=== PATIENT | male | born 1950 | race Hispanic/Latino ===

== ENCOUNTER 2020-05-02 16:49 | Observation (INO) | payer MEDICARE, OTHER ==
[~2020-05-02] VITALS: Ht 157.5 cm; Wt 76.8 kg
[2020-05-02] MEDS: PRAVASTATIN 20 MG TAB PO SCH
[2020-05-02] MEDS: PANTOPRAZOLE SOD 40 MG TABEC PO SCH
[~2020-05-02 16:49] MED LIST: ASPIRIN325 MG PO; BRIMONIDINE TAR10 ML OU; CARVEDILOL12.5 MG PO; CLOPIDOGREL75 MG PO; DORZOLAMIDE-TIM10 ML OU; ISOSORBIDE MONO30 MG PO; LATANOPROST2.5 ML OU; LEVOTHYROXINE50 MCG PO; LOSARTAN POTAS100 MG PO; METFORMIN HCL1000 MG PO; NITROSTAT0.4 MG SL; NOVOLIN N100 UNIT/1 SC; NOVOLIN N100 UNIT/1 SQ; OMEPRAZOLE20 MG PO; PRAVASTATIN SOD40 MG PO; RANEXA500 MG PO
[2020-05-02] MEDS ORDERED: ASPIRIN 81 MG CHEW TAB PO ONE (17:15)
[2020-05-02 17:20] LABS: BASOPHILS % 0.7 % (0.0-1.0); EOSINOPHILS # (AUTO) 0.1 (0.0-0.4); HEMATOCRIT 35.3 % (38.2-49.6); HEMOGLOBIN 10.7 g/dL (14.0-18.0); LYMPHOCYTES # (AUTO) 1.2 (1.0-3.2); LYMPHOCYTES % 20.1 % (18.0-39.1); MEAN CORPUSCULAR HEMOGLOBIN 29.7 pg (28-32); MEAN CORPUSCULAR HGB CONC 30.3 g/dL (31-35); MEAN CORPUSCULAR VOLUME 98.1 fL (81-99); MONOCYTES # (AUTO) 0.6 (0.2-0.8); MONOCYTES % 9.2 % (4.4-11.3); NEUTROPHILS # (AUTO) 4.1 (2.1-6.9); NEUTROPHILS % 67.5 % (38.7-80.0); PLATELET COUNT 162 x10e3/uL (140-360); RED CELL DISTRIBUTION WIDTH 13.9 % (11.7-14.4)
[2020-05-02 17:23] LABS: CLARITY,URINE CLEAR (CLEAR); COLOR,URINE YELLOW (YELLOW); KETONES,URINE NEGATIVE (NEGATIVE); LEUKOCYTE ESTERASE ,URINE NEGATIVE (NEGATIVE); NITRITE,URINE NEGATIVE (NEGATIVE); PROTEIN,URINE DIPSTICK 2+ (NEGATIVE); URINE UROBILINOGEN 0.2 mg/dL (0.2 - 1)
[2020-05-02 17:24] LABS: BILIRUBIN,URINE NEGATIVE (NEGATIVE)
[2020-05-02 17:28] LABS: INR 0.91; PROTHROMBIN TIME 12.7 seconds (11.9-14.5)
[2020-05-02 17:29] LABS: PARTIAL THROMBOPLASTIN TIME 32.6 seconds (23.8-35.5)
[2020-05-02 17:38] LABS: ALBUMIN 4.7 g/dL (3.5-5.0); ALBUMIN/GLOBULIN RATIO 1.4 (0.8-2.0); ANION GAP 20.3 mmol/L (8-16); CALCIUM 9.4 mg/dL (8.4-10.2); CREATININE, SERUM 1.2 mg/dL (0.72-1.25); POTASSIUM 4.3 mmol/L (3.5-5.1)
[2020-05-02 17:45] LABS: CREATINE KINASE MB 0.9 ng/mL (0-5.0)
[2020-05-02 21:09] VITALS: BP 158/81
[2020-05-02 21:39] VITALS: BP 158/81
[2020-05-02] MEDS ORDERED: ENOXAPARIN SOD INJ 60 MG/0.6 ML SYR SC STA (22:01)
[2020-05-02] MEDS: LATANOPROST(OPTH) 2.5 ML BTL OU SCH (22:15)
[2020-05-02] MEDS ORDERED: NPH, HUMAN INSULIN ISOPHANE 100 UNIT/1 ML 3ML VIAL SQ SCH (22:15)
[2020-05-02] MEDS ORDERED: DEXTROSE 50% SYRINGE 50 ML IV PRN (22:15)
[2020-05-02] MEDS ORDERED: FUROSEMIDE INJ 10 MG/ML 4 ML VIAL IV ONE (22:15)
[2020-05-02] MEDS ORDERED: NITROGLYCERIN 0.4 MG SUBL SL PRN (22:15)
[2020-05-02 22:58] VITALS: BP 148/58
[2020-05-02 23:03] VITALS: BP 131/54
[2020-05-03] VITALS (8 sets, daily range): BP systolic 124–158; BP diastolic 56–72
[2020-05-03 01:49] LABS: CREATINE KINASE MB 0.7 ng/mL (0-5.0)
[2020-05-03 04:58] LABS: BASOPHILS % 0.4 % (0.0-1.0); EOSINOPHILS # (AUTO) 0.1 (0.0-0.4); EOSINOPHILS % 0.9 % (0.0-6.0); HEMATOCRIT 30.9 % (38.2-49.6); HEMOGLOBIN 9.9 g/dL (14.0-18.0); LYMPHOCYTES # (AUTO) 1.2 (1.0-3.2); LYMPHOCYTES % 21.3 % (18.0-39.1); MEAN CORPUSCULAR HEMOGLOBIN 31.4 pg (28-32); MEAN CORPUSCULAR VOLUME 98.1 fL (81-99); MONOCYTES # (AUTO) 0.5 (0.2-0.8); MONOCYTES % 9.4 % (4.4-11.3); NEUTROPHILS # (AUTO) 3.6 (2.1-6.9); NEUTROPHILS % 67.4 % (38.7-80.0); PLATELET COUNT 149 x10e3/uL (140-360); RED BLOOD COUNT 3.15 x10e6/uL (4.3-5.7); RED CELL DISTRIBUTION WIDTH 13.7 % (11.7-14.4)
[2020-05-03 05:16] LABS: ALBUMIN 4.4 g/dL (3.5-5.0); ALBUMIN/GLOBULIN RATIO 1.5 (0.8-2.0); ANION GAP 16.6 mmol/L (8-16); CALCIUM 9.3 mg/dL (8.4-10.2); CREATININE, SERUM 1.2 mg/dL (0.72-1.25); POTASSIUM 3.6 mmol/L (3.5-5.1)
[2020-05-03 05:32] LABS: CHOL/HDL RATIO 2.8 (3.9-4.7)
[2020-05-03 05:52] LABS: THYROID STIMULATING HORMONE 0.593 uIU/mL (0.350-4.940)
[2020-05-03] MEDS: LEVOTHYROXINE SODIUM 50 MCG TAB PO SCH (06:11)
[2020-05-03] MEDS: INSULIN LISPRO 100 UNIT/1 ML 3ML VIAL SQ SCH ×4 (07:30→19:57)
[2020-05-03] MEDS ORDERED: NPH, HUMAN INSULIN ISOPHANE 100 UNIT/1 ML 3ML VIAL SQ SCH (07:30)
[2020-05-03] MEDS: CARVEDILOL 12.5 MG TAB PO SCH ×2 (08:00→17:23)
[2020-05-03] MEDS: RANOLAZINE 500 MG TABSR PO SCH ×2 (09:00→17:23)
[2020-05-03] MEDS: DORZOLAMIDE/TIMOLOL (OPTH SOL) 10 ML DRPETTE OP SCH ×2 (09:00→17:22)
[2020-05-03] MEDS: BRIMONIDINE TARTRATE 0.15% OPTH DRPS 10ML BTL OP SCH ×2 (09:00→17:22)
[2020-05-03] MEDS: FUROSEMIDE INJ 10 MG/ML 4 ML VIAL IV SCH (09:00)
[2020-05-03] MEDS ORDERED: HYDRALAZINE HCL 25 MG TAB PO PRN (09:15)
[2020-05-03] MEDS ORDERED: AZITHROMYCIN 250 MG TAB PO ONE (10:00)
[2020-05-03 11:02] LABS: CREATINE KINASE MB 0.7 ng/mL (0-5.0)
[2020-05-03] MEDS ORDERED: REGADENOSON 0.4 MG/5 ML SYR IV ONE (11:25)
[2020-05-03] MEDS ORDERED: SODIUM CHLORIDE 0.9% 250ML 250 ML ONE (14:03)
[2020-05-03] MEDS: CYANOCOBALAMIN INJ 1,000 MCG/ML VIAL IM SCH (14:04)
[2020-05-03] MEDS: CEFTRIAXONE SOD 1 GM/NS 50 ML 50 ML IV SCH (14:04)
[2020-05-03] MEDS: ASPIRIN 325 MG TAB PO SCH (17:21)
[2020-05-03] MEDS: ISOSORBIDE MONONITRATE 30 MG TAB CR PO SCH (17:21)
[2020-05-03] MEDS: CLOPIDOGREL BISULFATE 75 MG TAB PO SCH (17:22)
[2020-05-03] MEDS: LATANOPROST(OPTH) 2.5 ML BTL OU SCH (20:04)
[2020-05-03] MEDS: PRAVASTATIN 20 MG TAB PO SCH (20:05)
[2020-05-03] MEDS: PANTOPRAZOLE SOD 40 MG TABEC PO SCH (20:05)
[2020-05-03] MEDS ORDERED: LOSARTAN POTASSIUM 100 MG TAB PO SCH (21:00)
[2020-05-04] VITALS: BP 105/75
[2020-05-04 04:00] VITALS: BP 140/69
[2020-05-04 05:46] LABS: ANION GAP 17.7 mmol/L (8-16); BLOOD UREA NITROGEN 14 mg/dL (7-26); BUN/CREATININE RATIO 13 (6-25); CALCIUM 8.6 mg/dL (8.4-10.2); CARBON DIOXIDE 21 mmol/L (22-29); CHLORIDE 106 mmol/L (98-107); CREATININE, SERUM 1.06 mg/dL (0.72-1.25); EST GLOMERULAR FILTRATION RATE > 60 ML/MIN (60-); GLUCOSE 119 mg/dL (74-118); POTASSIUM 3.7 mmol/L (3.5-5.1); SODIUM 141 mmol/L (136-145)
[2020-05-04] MEDS ORDERED: MIDAZOLAM HCL 2 MG/2 ML VIAL ONE ×2 (07:16→08:48)
[2020-05-04] MEDS ORDERED: HEPARIN SOD (PORCINE) 1000 UNIT/ML 30ML ONE (07:16)
[2020-05-04] MEDS ORDERED: IOPAMIDOL 370 MG/ML 200 ML INFUS..BTL INJ ONE (07:17)
[2020-05-04] MEDS ORDERED: SODIUM CHLORIDE 0.9% 1000ML 1,000 ML ONE (07:17)
[2020-05-04] MEDS ORDERED: FENTANYL CITRATE/PF 100MCG/2 ML INJ ONE ×2 (07:17→08:48)
[2020-05-04] MEDS ORDERED: HEPARIN SOD/SOD CHLORIDE 2,000 ML ONE (07:17)
[2020-05-04] MEDS ORDERED: LIDOCAINE HCL 2% LOCAL 20 ML VIAL ONE ×2 (07:17→08:46)
[2020-05-04] MEDS ORDERED: NITROGLYCERIN/D5W 200 MCG/ML 0 ML ONE (07:17)
[2020-05-04] MEDS: LEVOTHYROXINE SODIUM 50 MCG TAB PO SCH (07:24)
[2020-05-04] MEDS: INSULIN LISPRO 100 UNIT/1 ML 3ML VIAL SQ SCH ×3 (07:24→16:30)
[2020-05-04] MEDS ORDERED: HEPARIN SOD/SOD CHLORIDE 1,000 ML ONE (08:22)
[2020-05-04 08:54] VITALS: BP 140/69
[2020-05-04] MEDS ORDERED: AZITHROMYCIN 250 MG TAB PO SCH (09:00)
[2020-05-04] MEDS: CARVEDILOL 12.5 MG TAB PO SCH ×2 (10:03→18:09)
[2020-05-04] MEDS: FUROSEMIDE INJ 10 MG/ML 4 ML VIAL IV SCH (10:03)
[2020-05-04] MEDS: CYANOCOBALAMIN INJ 1,000 MCG/ML VIAL IM SCH (10:03)
[2020-05-04] MEDS: ASPIRIN 325 MG TAB PO SCH (10:04)
[2020-05-04] MEDS: DORZOLAMIDE/TIMOLOL (OPTH SOL) 10 ML DRPETTE OP SCH ×2 (10:04→18:08)
[2020-05-04] MEDS: ISOSORBIDE MONONITRATE 30 MG TAB CR PO SCH (10:04)
[2020-05-04] MEDS: BRIMONIDINE TARTRATE 0.15% OPTH DRPS 10ML BTL OP SCH ×2 (10:04→18:08)
[2020-05-04] MEDS: CLOPIDOGREL BISULFATE 75 MG TAB PO SCH (10:04)
[2020-05-04] MEDS: RANOLAZINE 500 MG TABSR PO SCH ×2 (10:05→18:09)
[2020-05-04] MEDS: CEFTRIAXONE SOD 1 GM/NS 50 ML 50 ML IV SCH (10:05)
[2020-05-04 12:57] VITALS: BP 134/60
[2020-05-04 15:53] LABS: CALCIUM 8.7 mg/dL (8.4-10.2); CREATININE, SERUM 1.22 mg/dL (0.72-1.25)
[2020-05-04 16:00] VITALS: BP 105/66
[2020-05-04 20:00] VITALS: BP 105/66
== END 2020-05-04 19:25 | disposition home or self-care (01) ==
LOC: ER 17:20 → ERHOLD 18:23 → MED/SURG 20:05 → OBSVTOIN 05-03 22:09 → INTOOBSV 05-03 22:09
PROVIDERS: ADMIT Internal Medicine; ATTEND Internal Medicine
DX: I11.0 Hypertensive heart disease with heart failure (principal); I50.9 Heart failure, unspecified; I25.110 Atherosclerotic heart disease of native coronary artery with unstable angina pectoris; I25.82 Chronic total occlusion of coronary artery; E11.9 Type 2 diabetes mellitus without complications; I25.2 Old myocardial infarction; E03.9 Hypothyroidism, unspecified; K21.9 Gastro-esophageal reflux disease without esophagitis; E78.5 Hyperlipidemia, unspecified; Z95.1 Presence of aortocoronary bypass graft; Z95.5 Presence of coronary angioplasty implant and graft; E53.8 Deficiency of other specified B group vitamins; D50.9 Iron deficiency anemia, unspecified; I35.0 Nonrheumatic aortic (valve) stenosis
CPT/HCPCS: 36415 ×3; 71045; 71250; 76937; 78452; 80048; 80053 ×2; 80061; 81001; 82550 ×2; 82553 ×2; 82607; 82746; 82948 ×3; 83036; 83540; 83880; 84443; 84466; 84484 ×2; 85025 ×2; 85610; 85730; 93005; 93017; 93306 ×2; 93461; 99284; A9502; C1751; C1760 ×2; C1766; C1769 ×4; G0378 ×3; J0696 ×2; J1644; J1650; J1940 ×2; J2001; J2250; J2785; J3010; J3420 ×2; J7030; J7050; Q9967; S0164 ×2; U0002; 99152; 99153

== ENCOUNTER 2020-05-04 20:31 | Emergency (ER) | payer MEDICARE ==
[~2020-05-04] VITALS: Ht 157.5 cm; Wt 76.7 kg
[2020-05-04] MEDS ORDERED: SODIUM CHLORIDE 0.9% 500ML 500 ML IV ONE (21:30)
--- OUTSIDE RECORDS SUMMARY | 2020-05-04 21:35 | XMS REPORT | Continuity of Care Document ---
Author Author [facility] t Organization [facility] Address [address] [place] [address] Phone Unavailable Care Team Providers Care Fire Alarm Dispatcher Name Role Phone NONSTAFF PCP Unavailable BALJINDER GALINDO Attphys Unavailable Kinjal SANTOYO, P Bernabe Attphys TERESA PITT Attphys Unavailable BALJINDER GALINDO Admphys Unavailable TERESA PITT Admsusies Unavailable Payers Payer Name Policy Type Policy Number Effective Date Expiration Date Netta maguire [facility] [id number] 2016 00:00:00 [facility] HCHD [id number] UNSCREENEDxxxxxxxx 07/[id number] [place] [address] xxxxxxxxx 2014 00:00:00 [facility] Condition Name Condition Details Condition Category Status Onset Date Resolution Date Last Treatment Date Treating Clinician Comments Source CAD (coronary artery disease) CAD (coronary artery disease) Disease Active 2018-02-19 00:00:00 [facility] Exertional angina Exertional angina Disease Active 2018-02-18 00:00:00 [facility] Multiple vessel coronary artery disease Multiple vessel starla nary artery disease Disease Active 2018-02-18 00:00:00 [facility] Diverticulitis of intestine Problem Active 2016-04-06 00:00:00 [facility] Cardiomyopathy Problem Active 2016-04-06 00:00:00 [facility] Non-ST elevation (NSTEMI) myocardial infarction Proble m Active 2016-04-06 00:00:00 [facility] Angina of effort Angina of effort Disease Active 2015-11-09 00:00:00 [facility] Type II or unspecified type diabetes shnanon litus without mention of complication, not stated as uncontrolled Type II or unspecified type diabetes shannon litus without mention of complication, not stated as uncontrolled Disease Active 2014-03-10 00:00:00 [facility] Glaucoma, normal tension Glaucoma, normal tension Disease Acti ve 2014-02-10 00:00:00 [facility] GERD (gastroesophageal reflux disease) GERD (gastroesophagea l reflux disease) Disease Active 2013-09-25 00:00:00 [facility] Stable angina Stable angina Disease Active 2012-06-07 00:00:00 [facility] Orthopnea Orthopnea Disease Active 2012-06-07 00:00:00 [facility] Diabetes mellitus Diabetes mellitus Disease Active 2012-06-07 00:00:00 [facility] Glaucoma Glaucoma Disease Active 2012-06-07 00:00:00 [facility] Dyslipidemia Dyslipidemia Disease Active 2012-06-07 00:00:00 [facility] Hypothyroidism Hypothyroidism Disease Active 2012-06-07 00:00:00 [facility] Dyspnea on exertion Dyspnea on exertion Disease Active 2012-06-07 00:00 :00 [facility] CAD S/P percutaneous coronary angioplasty CAD S/P perc utaneous coronary angioplasty Disease Active 2012-06-07 00:00:00 [facility] Hx of CABG Hx of CABG Disease Active 2012-06-07 00:00:00 [facility] Chest pain Problem Active [facility] Allergies, Adverse Reactions, Alerts Allergy Name Allergy Type Status Severity Reaction(s) Onset Date Inacti ve Date Treating Clinician Comments Source Lisinopril Propensity to adverse reactions Active Severe 2014-12-03 00:00:00 Other reaction(s): Cough [facility] Lisinopril Propensity to adverse reactions to drug Active Cough 2013-03-31 00:00:00 [facility] Family History Family Member Diagnosis Comments Start Date Stop Date Source Natural brother Diabetes Dick He alth Natural father Arthritis Dick Hea lt Natural father Cancer [facility] lt Natural mother Diabetes Dick Hea [facility] Natural mother Heart Dick Grimesa [facility] Natural sister Arthritis Dick jennifer [facility] Natural sister Hypertension [facility] Social History Social Habit Start Date Stop Date Quantity Comments Source Sex Assigned At [facility] Tobacco Comment 2018-02-18 00:00:00 2018-02-18 00:00:00 quit 1996 [facility] Alcohol intake 2014-05-18 00:00:00 2014-05-18 00:00:00 Current drinker of alcohol (finding) [facility] Alcohol Comment 2012-06-06 00:00:00 2012-06-06 00:00:00 DSrinks 2 drinks on occasion [facility] History of tobacco use 1987-06-18 00:00:00 Current smoker [facility] Smoking Status Start Date Stop Date Source Former smoker 2014-05-18 00:00:00 2014-05-18 00:00:00 [facility] Medications Ordered Medication Name Filled Medication Name Start Date Stop Da te Current Medication? Ordering Clinician Indication Dosage Frequency Signature (SIG) Comments Components Source ranolazine (RANEXA) 1,000 mg SR tablet 2018-02-19 00:00:00 Yes 1000mg Q.5D Take 1 tablet (1,000 mg total) by mouth 2 (two) times daily. [facility] isosorbide mononitrate (ISMO,MONOKET) 20 MG tablet 2018-01 06:46:46 Yes 120mg Q.5D Take 120 mg by mouth 2 (two) times daily . [facility] metoprolol (LOPRESSOR) 100 MG tablet 2018-02-18 06:46:46 Ye s 100mg Q.5D Take 100 mg by mouth 2 (two) times daily. [facility] dorzolamide (TRUSOPT) 2 % ophthalmic solution 2015-11-09 07:16:3 7 Yes 1[drp] Q.[id number] 1 drop 3 (three) times daily. [facility] latanoprost (XALATAN) 0.005 % ophthalmic solution 2015-11-09 07:16:37 Yes 1[drp] QD 1 drop nightly. [facility] insulin NPH 100 unit/mL (3 mL) InPn 2015-11-09 07:16:37 Yes 15U Inject 15 Units subcutaneously 2 (two) times daily before meals. [facility] losartan (COZAAR) 100 MG tablet 2015-11-09 07:16:36 Yes 100mg QD Take 100 mg by mouth daily. [facility] metFORMIN (GLUCOPHAGE) 1000 MG tablet 2015-11-09 07:16:36 Y es 1000mg Take 1,000 mg by mouth 2 (two) times daily with breakfast and dinner. [facility] aspirin 325 MG tablet 2015-11-09 07:16:36 Yes 325mg QD Take 325 mg by mouth daily. [facility] levothyroxine (SYNTHROID, LEVOTHROID) 50 MCG tablet 11-08 07:16:36 Yes 50ug Take 50 mcg by mouth Every morning on an empty stomach. [facility] simvastatin (ZOCOR) 40 MG tablet 2015-11-09 07:16:36 Yes 40mg QD Take 40 mg by mouth nightly. [facility] clopidogrel (PLAVIX) 75 mg tablet 2015-11-09 07:16:36 Yes 75mg QD Take 75 mg by mouth daily. [facility] brimonidine (ALPHAGAN) 0.15 % ophthalmic solution 2015-11-09 07:16:36 Yes 1[drp] Q.[id number] 1 drop 3 (three) times daily. [facility] Brinzolamide (AZOPT) 1 % ophthalmic suspension 2014-05-18 08:23: 10 Yes 1[drp] Administer 1 Drop in both eyes 3 times daily. [facility] aspirin (NELLA ASPIRIN) 325 mg tablet 2014-05-18 08:23:10 Y es 325mg QD Take 325 mg by mouth daily. [facility] isosorbide mononitrate (IMDUR) 120 mg extended release table t 2014-05-18 00:00:00 Yes CAD (coronary artery disease) 120mg QD Take 1 tablet by mouth daily. [facility] isosorbide mononitrate (IMDUR) 60 mg extended release tablet 2014-05-18 00:00:00 Yes CAD (coronary artery disease) 60mg QD Take 1 tablet by mouth daily. [facility] losartan (COZAAR) 100 mg tablet 2014-05-18 00:00:00 Yes HTN, goal below 130/80 100mg QD Take 1 tablet by mouth daily. [facility] simvastatin (ZOCOR) 40 mg tablet 2014-05-18 00:00:00 Yes CAD (coronary artery disease) 40mg Take 1 tablet by mouth at bedtime nightly. [facility] latanoprost (XALATAN) 0.005 % ophthalmic solution 2014-05-07 00:00:00 Yes Glaucoma, normal tension 1[drp] Instill 1 Drop in each eye at bedtime nightly. [facility] ALPHAGAN P 0.15 % ophthalmic solution 2014-05-07 00:00:00 Yes Glaucoma, normal tension 1[drp] Instill 1 Drop in each eye 3 times daily. [facility] dorzolamide-timolol (COSOPT) 2-0.5 % ophthalmic solution 2014-05-07 00:00:00 Yes Glaucoma, normal tension 1[drp] Q.5D Instill 1 Drop in each eye 2 times daily. [facility] omeprazole (PRILOSEC) 20 mg delayed release capsule 04-15 00:00:00 Yes GERD (gastroesophageal reflux disease) 20mg QD Ta ke 1 capsule by mouth daily. [facility] metFORMIN (GLUCOPHAGE) 500 mg tablet 2014-04-15 00:00:00 Yes Diabetes mellitus type II, uncontrolled 1000mg Take 2 ta blets by mouth 2 times daily (with meals). [facility] acetaminophen (TYLENOL) 500 mg tablet 2014-04-15 00:00:00 Yes Musculoskeletal pain 500mg Take 1 tablet by [facility] every 6 hours as needed for Pain. [facility] insulin NPH (NOVOLIN N) 100 unit/mL injection 2014-03-03 00: 00:00 Yes Diabetes mellitus type II, uncontrolled Inject 15 units under the skin every morning and 12 units every evening. [facility] latanoprost (XALATAN) 0.005 % ophthalmic solution 2014-02-10 00:00:00 Yes Glaucoma, normal tension 1[drp] Instill 1 Drop in each eye at bedtime nightly. [facility] brimonidine (ALPHAGAN P) 0.15 % ophthalmic solution 02-10 00:00:00 Yes Glaucoma, normal tension 1[drp] Q.5D Instill 1 Drop in each eye 2 times daily. [facility] dorzolamide-timolol (COSOPT) 2-0.5 % ophthalmic solution 2014-02-10 00:00:00 Yes Glaucoma, normal tension 1[drp] Q.5D Instill 1 Drop in each eye 2 times daily. [facility] ULTRA COMFORT INSULIN SYRINGE 1/2 ML 30 X 5/16" syringe-need le 2014-02-01 00:00:00 Yes Diabetes mellitus type II, controlled 1{ syringe} Q.5D Use to inject insulin 2 times daily. Use a new syringe each time. [facility] Phenylephrine-Witch Catie (PREPARATION H) 0.25-50 % Gel 2013-12-02 00:00:00 Yes Constipated Q.5D Apply to affected area 2 times daily . [facility] Psyllium Seed-Sucrose (METAMUCIL) Powd 2013-12-02 00:00:00 Yes Constipated 3.4g QD Take 3.4 g by mouth daily. [facility] ketoconazole (NIZORAL) 2 % topical cream 2013-11-24 00:00:00 Yes Dermatophytosis of foot Q.5D Apply to affecte d area 2 times daily Label in Swedish. [facility] dorzolamide-timolol (COSOPT) 2-0.5 % ophthalmic solution 2013-11-12 00:00:00 Yes 1[drp] Q.5D Instill 1 Drop in each eye 2 giorgio es daily. [facility] brimonidine (ALPHAGAN P) 0.15 % ophthalmic solution 11-12 00:00:00 Yes 1[drp] Q.5D Instill 1 Drop in each eye 2 times daily . [facility] latanoprost (XALATAN) 0.005 % ophthalmic solution 2013-11-12 00:00:00 Yes 1[drp] Instill 1 Drop in each eye at bedtime nightly. [facility] levothyroxine (SYNTHROID) 50 mcg tablet 2013-10-28 00:00:00 Yes Hypothyroidism 50ug QD Take 1 tablet by mouth daily. [facility] carvedilol (COREG) 12.5 mg tablet 2013-10-15 00:00:00 Yes CAD (coronary artery disease) 12.5mg Take 1 tablet by mouth 2 times daily (with meals). [facility] clopidogrel (PLAVIX) 75 mg tablet 2013-10-15 00:00:00 Yes CAD (coronary artery disease) 75mg QD Take 1 tablet by mouth daily. [facility] nitroGLYCERIN (NITROSTAT) 0.4 mg sublingual tablet 2013-09 00:00:00 Yes CAD (coronary artery disease) Di ssolve 1 tablet under the tongue every 5 minutes as needed, up to 3 times. If chest pain persists, call 911. [facility] blood glucose test strips 2013-09-23 00:00:00 Yes Diabetes mellitus 1{each} Q.5D USE 1 EACH 2 TIMES DAILY [facility] ipratropium (ATROVENT HFA) 17 mcg/actuation inhaler 2012-08 00:00:00 Yes Restrictive lung disease 2{puff} Inhale 2 Puffs by mouth 4 times daily. [facility] albuterol (PROVENTIL HFA,PROAIR HFA,VENTOLIN HFA) 90 mcg/act uation inhaler 2013-02-24 00:00:00 Yes Chronic cough 2{puff} Administer 2 Puffs by inhalation every 4 hours as needed for Wheezing and Shortness of Breath. every 4 to 6 hours as needed [facility] beclomethasone (BECONASE AQ) 42 mcg (0.042 %) nasal spray 2013-02-24 00:00:00 Yes Chronic cough 2{spray} Q.5D Administer 2 Sprays in each nostril 2 times daily. Dose is for each nostril. [facility] cetirizine (ZYRTEC) 10 mg tablet 2013-02-24 00:00:00 Yes Chronic cough 10mg QD Take 1 tablet by mouth daily. [facility] nitroGLYCERIN (NITROSTAT) 0.4 mg sublingual tablet 2012-11 00:00:00 Yes CAD (coronary artery disease) Ta ke 1 tab sublingual at sign of chest pain, go to the ER after first dose but can repeat every 5 mins but not no more than 3 times total if still having pain [facility] Aspirin Aspirin Yes 325 Daily [facility] Brimonidine Tartrate Brimonidine Tartrate Yes 1 Twice A Day [facility] Carvedilol Carvedilol Yes 25 Twice A Day [facility] Clopidogrel Bisulfate (Clopidogrel) 75 Mg TABLET Clopi dogrel Bisulfate (Clopidogrel) 75 Mg TABLET Yes 75 Daily [facility] Dorzolamide Hcl/Timolol Maleat (Dorzolamide-Timolol Ey e Drops) 10 Ml DROPS Dorzolamide Hcl/Timolol Maleat (Dorzolamide-Timolol Eye Drops) 10 Ml DROPS Yes 1 Twice A Day [facility] Isosorbide Mononitrate (Isosorbide Mononitrate Er) 30 Mg TAB.ER.24H Isosorbide Mononitrate (Isosorbide Mononitrate Er) 30 Mg TAB.ER.24H Yes 120 Daily [facility] Latanoprost Latanoprost Yes 1 Bedtime [facility] Levothyroxine Sodium Levothyroxine Sodium Yes 50 Today At 6:00AM [facility] Losartan Potassium Losartan Potassium Yes 100 Da thao [facility] Metformin Hcl Metformin Hcl Yes 1000 Twice A Day [facility] Nitroglycerin (Nitrostat) 0.4 Mg TAB.SUBL Nitroglyceri n (Nitrostat) 0.4 Mg TAB.SUBL Yes .4 Every 5 Minutes as needed for Chest Pain [facility] Omeprazole Omeprazole Yes 40 Bedtime [facility] Pravastatin Sodium Pravastatin Sodium Yes 40 Be dtime [facility] Ranolazine (Ranexa) 500 Mg TABSR Ranolazine (Ranexa) 500 Mg TABSR Yes 1000 Twice A Day [facility] Nph, Human Insulin Isophane (Novolin N) 100 Unit/1 Ml VIAL Nph, Human Insulin Isophane (Novolin N) 100 Unit/1 Ml VIAL 2020-05-02 00:00:00 No 15 Before Breakfast [facility] Nph, Human Insulin Isophane (Novolin N) 100 Unit/1 Ml VIAL Nph, Human Insulin Isophane (Novolin N) 100 Unit/1 Ml VIAL 2020-05-02 00:00:00 No 15 Bedtime [facility] Immunizations Ordered Immunization Name Filled Immunization Name Date Status Comments Source Influenza Vaccine 2013-07-28 00:00:00 Completed [facility] Influenza Vaccine 2012-06-06 00:00:00 Completed [facility] PPV 23 Pneumococcal Polysaccaride 2012-06-06 00:00:00 Comp leted [facility] Vital Signs Vital Name Observation Time Observation Value Comments Source Body Temperature 2020-05-04 16:00:00 97.7 [degF] [facility] BMI (Body Mass Index) 2020-05-03 01:27:00 31.0 kg/m2 [facility] Weight 2020-05-02 21:10:00 169.25 [lb_av] [facility] Procedures Procedure Date / Time Performed Performing Clinician [facility] e Computed tomography of chest without contrast 2020-05-02 00:00:0 0 [facility] Plan of Care Planned Activity Planned Date Details Comments Source Future Scheduled Test 2015-01-25 00:00:00 Hemoglobin A1c shira surement (procedure) [code = 41449159] [facility] Scheduled Test 2014-10-23 00:00:00 CORONARY ARTERY DI SEASE AGE 18 AND UP [code = CORONARY ARTERY DISEASE AGE 18 AND UP] [facility] Scheduled Test 2014 00:00:00 IMM Pneumococcal A ge 65 and Up [code = IMM Pneumococcal Age 65 and Up] [facility] Scheduled Test 2014-05-08 00:00:00 DM Retinal Exam (Y early) [code = DM Retinal Exam (Yearly)] [facility] Scheduled Test 2013-11-04 00:00:00 DM Foot Exam (Year ly) [code = DM Foot Exam (Yearly)] [facility] Scheduled Test 1999 00:00:00 Screening for roselia gnant neoplasm of colon (procedure) [code = 802855855] [facility] Instructions Chest Pain - Chest Wall [facility] Instructions Diabetes and Diet [facility] Encounters Start Date/Time End Date/Time Encounter Type Admission Type [facility] Facility Care Department Encounter ID Source 2020-05-02 18:23:00 2020-05-04 19:25:00 Discharged Inpatient (obs) 1 BALJINDER GALINDO [facility] [id number] [facility] Results Test Description Test Time Test Comments Results Result Comments Source Serum or plasma sodium measurement (moles/volume) 2020-05-04 15:30:00 Test Item Sodium Level (test code = 2951-2) 141 136-[address] [facility], TXerum or plasma potassium measurement (moles/volume)2020-05-04 15:30:00* Test Item Value Reference Range Interpretation Comments Potassium Level (test code = 2823-3) 4.0 3.5-5.[address] [facility], TXerum or plasma chloride measurement (moles/volume)2020-05-04 15:30:00* Test Item Value Reference Range Interpretation Comments Chloride Level (test code = 2075-0) 105 98-[address] [facility], TXerum or plasma carbon dioxide, total measurement (moles/volume)2020-05-04 15:30:00* Test Item Value Reference Range Interpretation Comments Carbon Dioxide Level (test code = 2028-9) 21 22-[address] [facility], TXerum or plasma anion [id number] 15:30:00* Test Item Value Reference Range Interpretation Comments Anion Gap (test code = 91150-1) 19.0 8-[address] [facility], TXerum or plasma urea nitrogen measurement (mass/volume)2020-05-04 15:30:00* Test Item Value Reference Range Interpretation Comments Blood Urea Nitrogen (test code = 3094-0) 14 7-[address] [facility], TXerum or plasma creatinine measurement (mass/volume)2020-05-04 15:30:00* Test Item Value Reference Range Interpretation Comments Creatinine (test code = 2160-0) 1.22 0.72-1.[address] [facility], TXerum or plasma urea nitrogen/creatinine mass [id number] 15:30:00* Test Item Value Reference Range Interpretation Comments BUN/Creatinine Ratio (test code = 3097-3) 11 6-25 [facility] glomerular filtration rate (GFR) [id number] 15:30:00* Test Item Value Reference Range Interpretation Comments Estimat Glomerular Filtration Rate (test code = 639744409) 59 >60 Ranges were taken from the National Kidney Disease Education Program and the [employer] literature.Reference ranges:60 or greater: Lakdwq01-50 ( for 3 consecutive months): Chronic kidney disease 15 or less: Kidney failureThe Hospitals of Providence Memorial CampusGlucose [id number] 15:30:00* Test Item Value Reference Range Interpretation Comments Glucose Level (test code = WCU8124) 122 74-[address] [facility], TXerum or plasma calcium measurement (mass/volume)2020-05-04 15:30:00* Test Item Value Reference Range Interpretation Comments Calcium Level (test code = 30771-1) 8.7 8.4-10.2 [facility] CampusCapillary blood glucose measurement by glucometer (mass/volume)2020-05-04 10:54:00* Test Item Value Reference Range Interpretation Comments Bedside Glucose (test code = 02297-0) 109 70-120 Meter ID: [id number] [facility]'s Hospitalerum or plasma creatine kinase measurement (enzymatic activity/volume)2020-05-03 10:20:00* Test Item Value Reference Range Interpretation Comments Creatine Kinase (test code = 2157-6) 31 30-[address] [facility], TXerum or plasma creatine kinase MB measurement (mass/volume)2020-05-03 10:20:00* Test Item Value Reference Range Interpretation Comments Creatine Kinase MB (test code = 88091-0) 0.70 0-5.0 [facility] CampusTroponin I measurement by highly sensitive enzyme [id number] 10:20:00* Test Item Value Reference Range Interpretation Comments Troponin I (test code = 72726-0) 0.064 0-0.300 [facility] CampusBlood leukocytes automated count (number/volume)2020-05-03 04:40:00* Test Item Value Reference Range Interpretation Comments White Blood Count (test code = 6690-2) 5.40 4.8-10.8 [facility] erythrocytes automated count (number/volume)2020-05-03 04:40:00* Test Item Value Reference Range Interpretation Comments Red Blood Count (test code = 789-8) 3.15 4.3-5.7 [facility] hemoglobin measurement (moles/volume)2020-05-03 04:40:00* Test Item Value Reference Range Interpretation Comments Hemoglobin (test code = 22084-5) 9.9 14.0-18.0 [facility] CampusAutomated blood hematocrit (volume fraction)2020-05-03 04:40:00* Test Item Value Reference Range Interpretation Comments Hematocrit (test code = 4544-3) 30.9 38.2-49.6 [facility] CampusAutomated erythrocyte mean corpuscular [id number] 04:40:00* Test Item Value Reference Range Interpretation Comments Mean Corpuscular Volume (test code = 787-2) 98.1 81-99 [facility] CampusAutomated erythrocyte mean corpuscular hemoglobin (mass per erythrocyte)2020-05-03 04:40:00* Test Item Value Reference Range Interpretation Comments Mean Corpuscular Hemoglobin (test code = 785-6) 31.4 28-32 [facility] CampusAutomated erythrocyte mean corpuscular hemoglobin concentration measurement (mass/volume)2020-05-03 04:40:00* Test Item Value Reference Range Interpretation Comments Mean Corpuscular Hemoglobin Concent (test code = 786-4) 32.0 31-35 [facility] CampusRDW [id number] 04:40:00* Test Item Value Reference Range Interpretation Comments Red Cell Distribution Width (test code = 17527-3) 13.7 11.7 -14.4 [facility] CampusAutreplaced by [facility]ed blood platelet count (count/volume)2020-05-03 04:40:00* Test Item Value Reference Range Interpretation Comments Platelet Count (test code = 777-3) 149 140-360 [facility] segmented neutrophil count as percentage of total [id number] 04:40:00* Test Item Value Reference Range Interpretation Comments Neutrophils (%) (Auto) (test code = 03498-7) 67.4 38.7-80.0 [facility] CampusAutreplaced by [facility] blood lymphocyte count as percentage ot total [id number] 04:40:00* Test Item Value Reference Range Interpretation Comments Lymphocytes (%) (Auto) (test code = 736-9) 21.3 18.0-39.1 [facility] CampusAutomated blood monocyte count as percentage of total [id number] 04:40:00* Test Item Value Reference Range Interpretation Comments Monocytes (%) (Auto) (test code = 5905-5) 9.4 4.4-11.3 [facility] CampusAutomated blood eosinophil count as percentage of total vljctpxjgy0158-91-57 04:40:00* Test Item Value Reference Range Interpretation Comments Eosinophils (%) (Auto) (test code = 713-8) 0.9 0.0-6.0 [facility] CampusAutomated blood basophil count as percentage of total snkwakosey2122-52-58 04:40:00* Test Item Value Reference Range Interpretation Comments Basophils (%) (Auto) (test code = 706-2) 0.4 0.0-1.0 [facility] CampusFluoroscopic procedure less than one hour jfmcmhew5947-62-01 04:40:00* Test Item Value Reference Range Interpretation Comments IM GRANULOCYTES % (test code = IM GRANULOCYTES %) 0.6 0.0- 1.0 [facility] CampusAutomated blood neutrophil count 2020-05-03 04:40:00* Test Item Value Reference Range Interpretation Comments Neutrophils # (Auto) (test code = 751-8) 3.6 2.1-6.9 [facility] CampusBlood lymphocytes count (number/volume) 2020-05-03 04:40:00* Test Item Value Reference Range Interpretation Comments Lymphocytes # (Auto) (test code = 01941-3) 1.2 1.0-3.2 [facility] CampusBlood monocytes automated count (number/volume)2020-05-03 04:40:00* Test Item Value Reference Range Interpretation Comments Monocytes # (Auto) (test code = 742-7) 0.5 0.2-0.8 [facility] CampusAutomated blood eosinophil count 2020-05-03 04:40:00* Test Item Value Reference Range Interpretation Comments Eosinophils # (Auto) (test code = 711-2) 0.1 0.0-0.4 [facility] CampusAutomated blood basophil count (count/volume)2020-05-03 04:40:00* Test Item Value Reference Range Interpretation Comments Basophils # (Auto) (test code = 704-7) 0.0 0.0-0.1 [facility] CampusFluoroscopic procedure less than one hour skonjhdt8074-10-15 04:40:00* Test Item Value Reference Range Interpretation Comments Absolute Immature Granulocyte (auto (brendan t code = Absolute Immature Granulocyte (auto) 0.03 0-0.1 [facility] CampusFluoroscopic procedure less than one hour jujlgelp7267-99-52 04:40:00* Test Item Value Reference Range Interpretation Comments Hemoglobin A1c Percent (test code = Hemoglobin A1c Percent) 5.6 4.0-7.[address] [facility] [place], TXerum or plasma iron measurement (mass/volume)2020-05-03 04:40:00* Test Item Value Reference Range Interpretation Comments Iron Level (test code = 2498-4) 43 65-[address] [facility] [place], TXerum or plasma iron binding capacity measurement (mass/volume)2020-05-03 04:40:00* Test Item Value Reference Range Interpretation Comments Total Iron Binding Capacity (test code = 2500-7) 522 261-[address] [facility] [place], TXerum or plasma iron saturation measurement (mass fraction)2020-05-03 04:40:00* Test Item Value Reference Range Interpretation Comments Percent Iron Saturation (test code = 2502-3) 8 15-[address] [facility] [place], TXerum or plasma transferrin measurement (mass/volume)2020-05-03 04:40:00* Test Item Value Reference Range Interpretation Comments Transferrin (test code = 3034-6) 373 174-[address] [facility] [place], TXerum or plasma total bilirubin measurement (mass/volume)2020-05-03 04:40:00* Test Item Value Reference Range Interpretation Comments Total Bilirubin (test code = 1975-2) 0.5 0.2-1.2 [facility] CampusFluoroscopic procedure less than one hour jxncgpsg4078-87-31 04:40:00* Test Item Value Reference Range Interpretation Comments Aspartate Amino Transf (AST/SGOT) (test code = Aspartate Amino Transf (AST/SGOT)) 15 5-[address] [facility] [place], TXerum or plasma alanine aminotransferase measurement (enzymatic activity/volume)2020-05-03 04:40:00* Test Item Value Reference Range Interpretation Comments Alanine Aminotransferase (ALT/SGPT) (test code = 1742-6) 16 0-[address] [facility] [place], TXerum or plasma protein measurement (mass/volume)2020-05-03 04:40:00* Test Item Value Reference Range Interpretation Comments Total Protein (test code = 2885-2) 7.4 6.5-8.[address] [facility] [place], TXerum or plasma albumin measurement (mass/volume)2020-05-03 04:40:00* Test Item Value Reference Range Interpretation Comments Albumin (test code = 1751-7) 4.4 3.5-5.0 [facility] CampusPlasma globulin measurement (mass/volume) 2020-05-03 04:40:00* Test Item Value Reference Range Interpretation Comments Globulin (test code = 98825-6) 3.0 2.3-3.[address] [facility] [place], TXerum or plasma albumin/globulin mass [id number] 04:40:00* Test Item Value Reference Range Interpretation Comments Albumin/Globulin Ratio (test code = 1759-0) 1.5 0.8-2.[address] [facility] [place], TXerum or plasma alkaline phosphatase measurement (enzymatic activity/volume)2020-05-03 04:40:00* Test Item Value Reference Range Interpretation Comments Alkaline Phosphatase (test code = 6768-6) 46 40-[address] [facility] [place], TXerum or plasma triglyceride measurement (mass/volume)2020-05-03 04:40:00* Test Item Value Reference Range Interpretation Comments Triglycerides Level (test code = 2571-8) 112 0-[address] [facility] [place], TXerum or plasma cholesterol measurement (mass/volume)2020-05-03 04:40:00* Test Item Value Reference Range Interpretation Comments Cholesterol Level (test code = 2093-3) 171 0-199 Less than 200 mg/dL Low Jdin343 - 239 mg/dL Borderline Nehe922 m g/dl and greater High Risk [facility] [place], TXerum or plasma cholesterol in LDL measurement (mass/volume) 2020-05-03 04:40:00* Test Item Value Reference Range Interpretation Comments LDL Cholesterol (test code = 2089-1) 88 60-[address] [facility] [place], TXerum or plasma cholesterol in HDL measurement (mass/volume)2020-05-03 04:40:00* Test Item Value Reference Range Interpretation Comments HDL Cholesterol (test code = 2085-9) 61 40-[address] [facility] [place], TXerum or plasma total cholesterol/cholesterol in HDL mass [id number] 04:40:00* Test Item Value Reference Range Interpretation Comments Cholesterol/HDL Ratio (test code = 9830-1) 2.8 3.9-4.7 [facility] CampusBlood cobalamin (vitamin B12) measurement (mass/volume)2020-05-03 04:40:00* Test Item Value Reference Range Interpretation Comments Vitamin B12 Level (test code = 11667-9) 123 213-[address] [facility] [place], TXerum or plasma thyrotropin measurement by detection limit <= 0.005 miu/l (units/volume)2020-05-03 04:40:00* Test Item Value Reference Range Interpretation Comments Thyroid Stimulating Hormone (TSH) (test code = 87989-2) 0.593 0.350-4.[address] [facility] [place], TXerum or plasma folate measurement (mass/volume)2020-05-03 04:40:00* Test Item Value Reference Range Interpretation Comments Folate (test code = 2284-8) 14.7 >3.0 A serum folate concentration of less than 3.1 ng/mL isconsidered to represent cl inical deficiency.Performed at: - [facility] [id number] Director: Hill Mendenhall MD, Phone: [phone] Hospitals of [facility] Memorial CampusCT CHEST [id number] 23:01:[address] [address] Patient Name: KASSY FRANKS MR #: [id number] : 1950 Age/Sex: 69/M Req #: [id number] [facility] Physician: BALJINDER GALINDO MD Ordered by: BALJINDER GALINDO MD Report #: [id number] Location: MED/SURG Room/Bed: [facility] Procedure: CT/CT CHES [place] WO Exam Date: 05/02/20 Exam Time: 2249 REPORT STATUS: Signed EXAM: CT Chest WITHOUT contrast INDICATION: Short of breath, abnormal chest x-ray, infection versus CHF sob/abn cxr/infection vs chf [id number] COMPARISON: Same- day chest x-ray TECHNIQUE: Chest was scanned utilizing a multidetector [facility] from the lung apex through the level of the adrenal glands witho ut administration of IV contrast. Absence of intravenous contrast decreases se nsitivity for detection of lymphadenopathy and vascular pathology. Coronal and sagittal reformations were obtained. Routine protocol was performed. IV CONTRAST: None COMPLICATIONS: None RADIATION DOSE: Total DLP: 544 mGy*cm Estimated effective dose: (DLP x 0.014 x size factor) mSv CTDIvol has been reviewed. It is below the limits set by the Radiation Protocol Committee (RPC). Dose modulation, iterative reconstruction, and /or weight based adjustment of the mA/kV was utilized to reduce the radiation dose to as low as reasonably achievable. FINDINGS: LINES / TUBES: None. LUNGS AND AIRWAYS: Interlobular septal thickening mild thick ening of the intrapulmonary fissures.. A few subtle foci of centrilobular grou ndglass opacities. Airways are normal. PLEURA: The pleural spaces are melida ar. HEART AND MEDIASTINUM: The thyroid gland is normal. No mediastinal, hi lar or axillary lymphadenopathy. The heart is normal in size. An 8.7 cm lobul ar soft tissue dense mass-like lesion with peripheral and subtle internal calc ification in the lower anterior mediastinum/pericardium . Calcifications o f the aorta and major branches. UPPER ABDOMEN: Unremarkable. BONES: Sternotomy wires. Degenerative changes. SOFT TISSUES: Unremarkable. IMPRESSION: Mild cardiomegaly and pulmonary interstitial edema. A few foci of alveolar airspace disease can be due to alveolar edema or pneumonia. Adva nced coronary artery disease. An 8.7 cm lobular soft tissue dense mass-li ke lesion with peripheral and subtle internal calcification in the lower anter ior mediastinum/pericardium is favored to be due to postsurgical pericardial c hanges rather than mass/neoplasm. Recommend nonemergent chest CT with contrast . Signed by: Forest Mei DO on 05/02/2020 11:12 PM Dictated By: NIYAH MEI DO 231 2 Transcribed By: SHYAM on 05/02/20 2312 COPY TO: BALJINDER GALINDO MD Fluoroscopic procedure less than one hour [id number] 18:40:00* Test Item Value Reference Range Interpretation Comments Coronavirus (PCR) (test code = Coronavirus (PCR)) NOT DETECTED NOTD ETECTED SARS-CoV-2 PCRHologic Aptima SARS-CoV-2 assay is a nucleic amplification test in tended for the qualitative detection of RNA from SARS-CoV-2 from nasopharyngeal ([employer]) specimens. It is used under Emergency Use Authorization (EUA) by FDA.A posi tive result is indicative of the presence of SARS-CoV-2 RNA. Clinical correlatio n with patient history and other diagnostic information is necessary to determin e patient infection status.A negative (Not Detected) result does not preclude SA RS-CoV-2 infection. Clinical Correlation with patient history and other diagnost ic information should be used in patient management decisions.Invalid: Unable to generate a valid result on this specimen. Please submit a new specimen for repr at testing oc clinically indicated.Tesing performed by:[facility] [place] [id number], Edy marshall MD, PhDBaylor [facility] & [facility] SINGLE (PORTABLE) 2020-05-02 18:11:00 [facility] [address] [address] Patient Name: KASSY FRANKS MR #: [id number] : 1950 Age/Sex: 69/M Req #: [id number] Adm Physician: Ordered by: MUNDO ISAACS DO Report #: [id number] Location: ER Room/Bed: Procedure: [id number] DX/C HEST SINGLE (PORTABLE) Exam Date: 05/02/20 Exam Time : 1730 REPORT STATUS: Signed EXA MINATION: CHEST SINGLE (PORTABLE) INDICATION: COMPARISON: None FINDINGS: TUBES and LINES: None. LUNGS: Normal lung vo lumes. There is prominent interstitial lung markings, particularly at the yoly g bases No consolidations. PLEURA: No pleural effusion or pneumothorax. HEART AND MEDIASTINUM: The cardiomediastinal silhouette is mildly enlarged. Atherosclerotic calcification of the thoracic aortic knob. BONES AND SOFT TISSUES: No acute osseous lesion. There are median sternotomy wires and medi astinal surgical clips Soft tissues are unremarkable. UPPER ABDOMEN: No shine e air under the diaphragm. IMPRESSION: Mild cardiomegaly with pro minent interstitial lung markings particularly lung bases which most likely re presents interstitial pulmonary edema with superimposed bibasilar atelectasis. Developing lower lobe pneumonia cannot be excluded and should be considered in the proper clinical context. Signed by: Ronel Beltran MD on 05/02/2020 6:14 PM Dictated By: RONEL BELTRAN MD 13 Transcribed By: SHYAM on 05/02/201813 COPY TO: MUNDO ISAACS DO Prothrombin time (PT) in platelet poor plasma by coagulation [id number] 17:11:00* Test Item Value Reference Range Interpretation Comments Prothrombin Time (test code = 5902-2) 12.7 11.9-14.5 [facility] CampusINR in Platelet poor plasma by Coagulation [id number] 17:11:00* Test Item Value Reference Range Interpretation Comments Prothromb Time International Ratio (test code = 6301-6) 0.91 Oral Anticoagulant Therapy INR Values:1. Low Intensity Therapy 1.5 - 2.02 . Moderate Intensity Therapy 2.0 - 3.03. High Intensity Therapy(1) 2.5 - 3. 54. High Intensity Therapy(2) 3.0 - 4.05. Panic Value INR > 5.0 [facility] CampusActivated partial thromboplastin time (aPTT) in platelet poor plasma by coagulation xzirq1612-74-51 17:11:00* Test Item Value Reference Range Interpretation Comments Activated Partial Thromboplast Time (test code = 17528-5) 32.6 23.8-35.5 [facility] CampusUrine color hssalnjfabdtp6016-53-30 17:11:00* Test Item Value Reference Range Interpretation Comments Urine Color (test code = 5778-6) YELLOW YELLOW [facility] CampusUrine [id number] 17:11:00* Test Item Value Reference Range Interpretation Comments Urine Clarity (test code = 72440-1) CLEAR CLEAR [facility] [place], TXpecific gravity of Urine by Test strip 2020-05-02 17:11:00* Test Item Value Reference Range Interpretation Comments Urine Specific [place] (test code = 5811-5) 1.020 1.010-1.02 5 [facility] CampusUrine pH measurement by automated test [id number] 17:11:00* Test Item Value Reference Range Interpretation Comments Urine pH (test code = 25380-8) 6 5-7 [facility] CampusUrine leukocyte esterase detection by [id number] 17:11:00* Test Item Value Reference Range Interpretation Comments Urine Leukocyte Esterase (test code = 5799-2) NEGATIVE NEGATIVE [facility] CampusUrine nitrite yzhsgviun2341-49-27 17:11:00* Test Item Value Reference Range Interpretation Comments Urine Nitrite (test code = 03287-1) NEGATIVE NEGATIVE [facility] CampusUrine protein measurement by test strip (mass/volume)2020-05-02 17:11:00* Test Item Value Reference Range Interpretation Comments Urine Protein (test code = 5804-0) 2+ NEGATIVE [facility] CampusUrine glucose mrrsrmbsl6137-42-52 17:11:00* Test Item Value Reference Range Interpretation Comments Urine Glucose (UA) (test code = 2349-9) 1+ NEGATIVE [facility] CampusUrine ketones detection by automated test [id number] 17:11:00* Test Item Value Reference Range Interpretation Comments Urine Ketones (test code = 60863-7) NEGATIVE NEGATIVE [facility] CampusUrine urobilinogen measurement by test strip (mass/volume)2020-05-02 17:11:00* Test Item Value Reference Range Interpretation Comments Urine Urobilinogen (test code = 68842-3) 0.2 0.2-1 [facility] CampusUrine total bilirubin measurement (mass/volume)2020-05-02 17:11:00* Test Item Value Reference Range Interpretation Comments Urine Bilirubin (test code = 1978-6) NEGATIVE NEGATIVE [facility] CampusUrine erythrocytes nulmolqdc4370-31-79 17:11:00* Test Item Value Reference Range Interpretation Comments Urine Blood (test code = 72910-9) NEGATIVE NEGATIVE [facility] CampusAutomated urine sediment leukocyte count by microscopy (number/high power field)2020-05-02 17:11:00* Test Item Value Reference Range Interpretation Comments Urine WBC (test code = 5821-4) NONE 0-5 [facility] CampusErythrocytes detection in urine sediment by light bbizvoswsu4961-81-19 17:11:00* Test Item Value Reference Range Interpretation Comments Urine RBC (test code = 93761-8) NONE 0-5 [facility] CampusBacteria detection in urine sediment by light qbjukudsbr4626-83-60 17:11:00* Test Item Value Reference Range Interpretation Comments Urine Bacteria (test code = 66474-5) NONE NONE [facility] CampusEpithelial cells detection in urine sediment by light ybfqyamfln1092-24-03 17:11:00* Test Item Value Reference Range Interpretation Comments Urine Epithelial Cells (test code = 57102-1) NONE NONE [facility] CampusBN Ftg-sSji4830-61-07 17:11:00* Test Item Value Reference Range Interpretation Comments B-Type Natriuretic Peptide (test code = 30453-0) 530.2 0-100 [facility] CampusPOCT-GLUCOSE [id number] 08:54:00* Test Item Value Reference Range Interpretation Comments POC-GLUCOSE METER (BEAKER) (test code = 1538) 109 mg/dL 70-110 TESTED AT [facility] [address] [facility] [address] BASIC METABOLIC [id number] 04:58:00* Test Item Value Reference Range Interpretation Comments SODIUM (BEAKER) (test code = 381) 139 meq/L 136-145 POTASSIUM (BEAKER) (test code = 379) 4.0 meq/L 3.5-5.1 CHLORIDE (BEAKER) (test code = 382) 108 meq/L 98-107 H CO2 (BEAKER) (test code = 355) 24 meq/L 22-29 BLOOD UREA NITROGEN (BEAKER) (test code = 354) 15 mg/dL 7-21 CREATININE (BEAKER) (test code = 358) 0.80 mg/dL 0.57-1.25 GLUCOSE RANDOM (BEAKER) (test code = 652) 93 mg/dL 70-105 CALCIUM (BEAKER) (test code = 697) 8.8 mg/dL 8.4-10.2 EGFR (BEAKER) (test code = 1092) 96 mL/min/1.73 sq m ESTIMATED GFR IS NOT ACCURATE CREATININE CLEARANCE IN PREDICTING GLOMERULAR FILTRATION RATE. ESTIMATED GFR IS NOT APPLICABLE FOR DIALYSIS PATIENTS. CBC (HEMOGRAM ONLY)2018-02-19 04:39:00* Test Item Value Reference Range Interpretation Comments WHITE BLOOD CELL COUNT (BEAKER) (test code = 775) 6.6 K/ L 3.5- 10.5 RED BLOOD CELL COUNT (BEAKER) (test code = 761) 3.22 M/ L 4.63-6 .08 L HEMOGLOBIN (BEAKER) (test code = 410) 10.1 GM/DL 13.7-17.5 L HEMATOCRIT (BEAKER) (test code = 411) 31.1 % 40.1-51.0 L MEAN CORPUSCULAR VOLUME (BEAKER) (test code = 753) 96.6 fL 79. 0-92.2 H MEAN CORPUSCULAR HEMOGLOBIN (BEAKER) (test code = 751) 31.4 pg 25.7-32.2 MEAN CORPUSCULAR HEMOGLOBIN CONC (BEAKER) (test code = 752) 32.5 GM/DL 32.3-36.5 RED CELL DISTRIBUTION WIDTH (BEAKER) (test code = 412) 13.1 % 11.6-14.4 PLATELET COUNT (BEAKER) (test code = 756) 99 K/CU MM 150-450 L MEAN PLATELET VOLUME (BEAKER) (test code = 754) 13.1 fL 9.4-12 .4 H NUCLEATED RED BLOOD CELLS (BEAKER) (test code = 413) 0 /100 WBC 0 -0 POCT-GLUCOSE [id number] 21:38:00* Test Item Value Reference Range Interpretation Comments POC-GLUCOSE METER (BEAKER) (test code = 1538) 224 mg/dL 70-110 H TESTED AT [facility] [address] [facility] [address] POCT-GLUCOSE [id number] 17:36:00* Test Item Value Reference Range Interpretation Comments POC-GLUCOSE METER (BEAKER) (test code = 1538) 164 mg/dL 70-110 H TESTED AT [place] [id number] [facility] [address] MR, CARDIAC, [id number] 17:19:00Reason for exam:->Assess myocardial viabilityFINAL REPORT Cardiac MRI dated 18 February 2018 INDICATION: This is a 67 years old gentleman, with no ischemic heart disease, post coronary artery bypass surgery presents for assessment. This study is performed in order to quantitate left ventricular function, and to determine myocardial viability and damage. TECHNIQUE: [employer] technologyVA MRI scanner. Morphologic and dynamic cine imaging were performed in multiple projections before and after contrast administration. Thereafter, gadolinium was administered, which was followed by viability/scar imaging. Finally, flow quantification sequences were performed to determine the degree of valvular dysfunction. Please refer to the contrast sheet scanned in the EPIC system for the amount and route of contrast given. Scanning blood pressure was 145/69. Patient weighs 181 pounds, with height of 64 inches. FINDINGS: The chest wall and mediastinum appears unremarkable an patient is post median sternotomy. The pericardium and pulmonary arteries appear normal; no pericardial effusion is seen in the central pulmonary artery is normal in calibre. Limited imaging through the lungs reveals no gross abnormalities; MR is not optimised in the assessment of pulmonary parenchymal lung disease. The cardiac chambers demonstrate normal atrioventricular and ventriculoarterial concordance, and s ystemic and pulmonary venous return. The thoracic aorta is normal in course, c alibre, and contour. Mild atherosclerosis is seen in the descending thoracic aor ta. There is no evidence of acute aortic pathology, such as dissection, intramur al hematoma, or contained rupture. The left ventricle is normal in size with mi ld systolic dysfunction. Segmental wall motion abnormality is seen, specifically , there is severe hypokinesis/akinesis identified in the basal and mid inferior wall (with thinning of the myocardium), extending into the adjacent inferolatera l septum and inferolateral wall. The most distal inferior wall has reasonable co ntraction suggesting it may be supplied by a wraparound LAD. Quantitative values are as follows: EDV = 175 cc; ESV = 99 cc; stroke volume = 75 cc; and ejection fraction = 43%. Calculated absolute cardiac output = 4.9 liters/min. Absolute left ventricular mass = 102 grams. The right ventricle is normal in size and fun ction. The most basal inferior wall of the right ventricle is also hypokinetic. Quantitative values are as follows: EDV = 100 cc; ESV = 42 cc; stroke volume = 5 8 cc; and ejection fraction = 58%. Cine imaging and flow quantification reveal s mild mitral regurgitation regurgitant fraction of 20%. Aortic and tricuspid va lve function is unremarkable. Viability/scar imaging reveals essentially transmu ral scar in the basal two third of the inferior wall (sparing the first few mill imeter of the basal inferior wall), that extends into the adjacent basal one thi rd of the inferoseptum and inferolateral wall. The distal inferior wall is fully viable. Thereafter remainder of the left ventricle have full-thickness, viable appearing myocardium including the LAD territory extending into the entire apex, as well as the majority of the lateral wall. Ventricular thrombus is not presen t. Flow curves suggest raised left atrial pressure. Left atrial prominence is id entified. Incidental note, lipomatous hypertrophy of the interatrial septum is p resent. CONCLUSIONS: 1. The left ventricle is normal in size with overall mild systolic dysfunction. Regional wall motion abnormality as described above. Eject ion fraction is quantified to be 43%. Quantitative left ventricular functional values are as described above. Viability/scar imaging reveals essentially transm ural scar in the basal two third of the inferior wall (sparing the first few mil limeter of the basal inferior wall), that extends into the adjacent basal one th ird of the inferoseptum and inferolateral wall. The distal inferior wall is full y viable. Remainder of the left ventricle otherwise have full-thickness, viable appearing myocardium including the LAD territory extending into the entire apex, as well as the majority of the lateral wall. 2. The right ventricle is normal in size, shape, and function. Quantitative right ventricular functional veins as described above 3. Mild mitral regurgitation. 4. Raised left atrial pressure. Left atrial prominence. Signed: Madhav Daniels MDReport Verified Date/Time: 0 02/18/2018 17:19:14 Reading Location: [place] [address] Cardiology [facility] y signed by: MADHAV DANIELS M.D. on 02/18/2018 05:19 PM POCT-GLUCOSE METER 2018-02-18 10:18:00* Test Item Value Reference Range Interpretation Comments POC-GLUCOSE METER (EDE) (test code = 1538) 107 mg/dL 70-110 TESTED AT [facility] [address] [place] [id number]
--- OUTSIDE RECORDS SUMMARY | 2020-05-04 21:35 | XMS REPORT | Clinical Summary ---
Author Author [facility] Organization [facility] Address Unknown Phone Unavailable Care Team Providers Care Rn Licensed Practical Name Role Phone PCP Unavailable Allergies Comments Active Allergy Reactions Severity Noted Date Lisinopril Cough 03/31/2013 Medications End Date Status Medication Sig Dispensed Refills Start Date Active Brinzolamide (AZOPT) 1 % Administer 1 0 ophthalmic suspension Drop in both eyes 3 times daily. Active nitroGLYCERIN (NITROSTAT) Take 1 tab 100 tablet 2 0.4 mg sublingual sublingual at 3 tabletIndications: CAD sign of chest (coronary artery disease) pain, go to the ER after first dose but can repeat every 5 mins but not no more than 3 times total if still having pain Active albuterol (PROVENTIL Administer 2 1 Inhaler 1 HFA,PROAIR HFA,VENTOLIN Puffs by 3 HFA) 90 mcg/actuation inhalation inhalerIndications: every 4 hours Chronic cough as needed for Wheezing and Shortness of Breath. every 4 to 6 hours as needed Active beclomethasone (BECONASE Administer 2 25 g 1 AQ) 42 mcg (0.042 %) Sprays in 3 nasal sprayIndications: each nostril Chronic cough 2 times daily. Dose is for each nostril. Active cetirizine (ZYRTEC) 10 mg Take 1 tablet 90 tablet 1 tabletIndications: by mouth 3 Chronic cough daily. Active ipratropium (ATROVENT Inhale 2 1 Inhaler 1 HFA) 17 mcg/actuation Puffs by 3 inhalerIndications: mouth 4 times Restrictive lung disease daily. Active blood glucose test USE 1 EACH 2 100 Each stripsIndications: TIMES DAILY 4 Diabetes mellitus Active aspirin (NELLA ASPIRIN) Take 325 mg 0 325 mg tablet by mouth daily. Active carvedilol (COREG) 12.5 Take 1 tablet 180 tablet 3 mg tabletIndications: CAD by mouth 2 4 (coronary artery disease) times daily (with meals). Active clopidogrel (PLAVIX) 75 Take 1 tablet 90 tablet 3 mg tabletIndications: CAD by mouth 4 (coronary artery disease) daily. Active nitroGLYCERIN (NITROSTAT) Dissolve 1 100 tablet 6 0.4 mg sublingual tablet under 4 tabletIndications: CAD the tongue (coronary artery disease) every 5 minutes as needed, up to 3 times. If chest pain persists, call 911. Active levothyroxine (SYNTHROID) Take 1 tablet 90 tablet 2 50 mcg tabletIndications: by mouth 4 Hypothyroidism daily. Active dorzolamide-timolol Instill 1 30 mL 1 (COSOPT) 2-0.5 % Drop in each 4 ophthalmic solution eye 2 times daily. Active brimonidine (ALPHAGAN P) Instill 1 15 mL 1 0 0.15 % ophthalmic Drop in each 4 solution eye 2 times daily. Active latanoprost (XALATAN) Instill 1 7.5 mL 1 10/25 0 0.005 % ophthalmic Drop in each 4 solution eye at bedtime nightly. Active ketoconazole (NIZORAL) 2 Apply to 30 g 0 0 % topical affected area 4 creamIndications: 2 times daily Dermatophytosis of foot Label in Qatari. Active Phenylephrine-Witch Catie Apply to 1 Tube 0 (PREPARATION H) 0.25-50 % affected area 4 GelIndications: 2 times Constipated daily. Active Psyllium Seed-Sucrose Take 3.4 g by 1 Bottle 0 (METAMUCIL) mouth daily. 4 PowdIndications: Constipated Active ULTRA COMFORT INSULIN Use to inject 100 Each 11 SYRINGE 1/2 ML 30 X 5/16" insulin 2 4 syringe-needleIndications times daily. : Diabetes mellitus type Use a new II, controlled syringe each time. Active latanoprost (XALATAN) Instill 1 2.5 mL 1 01/24 0.005 % ophthalmic Drop in each 4 solutionIndications: eye at Glaucoma, normal tension bedtime nightly. Active brimonidine (ALPHAGAN P) Instill 1 15 mL 1 0 0.15 % ophthalmic Drop in each 4 solutionIndications: eye 2 times Glaucoma, normal tension daily. Active dorzolamide-timolol Instill 1 10 mL 1 (COSOPT) 2-0.5 % Drop in each 4 ophthalmic eye 2 times solutionIndications: daily. Glaucoma, normal tension Active insulin NPH (NOVOLIN N) Inject 15 30 mL 2 100 unit/mL units under 4 injectionIndications: the skin Diabetes mellitus type every morning II, uncontrolled and 12 units every evening. Active omeprazole (PRILOSEC) 20 Take 1 90 capsule 1 0 mg delayed release capsule by 4 capsuleIndications: GERD mouth daily. (gastroesophageal reflux disease) Active metFORMIN (GLUCOPHAGE) Take 2 360 tablet 1 500 mg tabletIndications: tablets by 4 Diabetes mellitus type mouth 2 times II, uncontrolled daily (with meals). Active acetaminophen (TYLENOL) Take 1 tablet 30 tablet 0 500 mg tabletIndications: by mouth 4 Musculoskeletal pain every 6 hours as needed for Pain. Active latanoprost (XALATAN) Instill 1 7.5 mL 1 04/26 0.005 % ophthalmic Drop in each 4 solutionIndications: eye at Glaucoma, normal tension bedtime nightly. Active ALPHAGAN P 0.15 % Instill 1 30 mL 1 05/07/20 1 ophthalmic Drop in each 4 solutionIndications: eye 3 times Glaucoma, normal tension daily. Active dorzolamide-timolol Instill 1 30 mL 1 (COSOPT) 2-0.5 % Drop in each 4 ophthalmic eye 2 times solutionIndications: daily. Glaucoma, normal tension Active isosorbide mononitrate Take 1 tablet 90 tablet 3 0 (IMDUR) 120 mg extended by mouth 4 release daily. tabletIndications: HTN, goal below 130/80, CAD (coronary artery disease) Active isosorbide mononitrate Take 1 tablet 90 tablet 3 0 (IMDUR) 60 mg extended by mouth 4 release daily. tabletIndications: HTN, goal below 130/80, CAD (coronary artery disease) Active losartan (COZAAR) 100 mg Take 1 tablet 90 tablet 3 tabletIndications: HTN, by mouth 4 goal below 130/80 daily. Active simvastatin (ZOCOR) 40 mg Take 1 tablet 90 tablet 3 tabletIndications: CAD by mouth at 4 (coronary artery disease) bedtime nightly. Active Problems Problem Noted Date Type II or unspecified type diabetes mellitus without mention of 03/10/2014 complication, not stated as uncontrolle d Glaucoma, normal tension 02/10/2014 GERD (gastroesophageal reflux disease) 09/25/2013 Stable angina 06/07/2012 Orthopnea 06/07/2012 Diabetes mellitus 06/07/2012 Glaucoma 06/07/2012 Dyslipidemia 06/07/2012 Hypothyroidism 06/07/2012 Dyspnea on exertion 06/07/2012 CAD S/P percutaneous coronary angioplasty 06/07/2012 Hx of CABG 06/07/2012 Encounters Care Team Description Date Type Specialty Bernabe Layton MD Medications 01/12/2020 Refill Ophthalmology Bernabe Layton MD Medications 12/16/2019 Refill Ophthalmology after 05/04/2019 Immunizations Name Administration Dates Next Due Influenza Vaccine 07/28/2013, 06/06/2012 PPV 23 Pneumococcal 06/06/2012 Polysaccaride Family History Medical History Relation Name Comments Diabetes Brother Arthritis Father Cancer Father Diabetes Mother Heart Mother Arthritis Sister Hypertension Sister Relation Name Status Comments Brother Alive 3 Brother Daughter Alive Father Mother Sister Alive 8 Sister Son Alive 2 Social History Date Tobacco Use Types Packs/Day Years Used Quit: 06/18/1987 Former Smoker Cigarettes Smokeless Tobacco: Never Used Tobacco Cessation: Counseling Given: No Drinks/Week oz/Week Comments Alcohol Use DSrinks 2 drinks on occasion Yes Sex Assigned at Date Recorded Not on file Industry Job Start Date Occupation Not on file Not on file Not on file Travel End Travel History Travel Start No recent travel history available. Last Filed Vital Signs Not on file Plan of Treatment Health Maintenance Due Date Last Done Comments Colorectal Cancer Scrn 1999 Annual (FIT/FOBT) Age 50 to 75 DM Foot Exam (Yearly) 11/04/2013 11/04/2012 DM Retinal Exam (Yearly) 05/08/2014 05/08/2013 (Previously completed - External) IMM Pneumococcal Age 65 2014 and Up CORONARY ARTERY DISEASE 10/23/2014 10/23/2013, AGE 18 AND UP 06/27/2013, 12/02/2012, Additional history exists DM HGBA1C (Yearly) 01/25/2015 01/25/2014, 10/23/2013, 06/27/2013, Additional history exists Results Not on fileafter 05/04/2019 Insurance Type Payer Benefit Subscriber ID Effective Phone Address Plan / Dates Group [facility] SELF-PAY SELF-PAY xxxxxxxxx 2014- [phone] [id number] [place] [address] Household (Home) [place], [place] [address] (Self) Advance Directives Date Inactivated Comments Code Status Date Activated 06/11/2012 8:23 PM Full Code 06/10/2012 12:24 PM 06/10/2012 12:24 PM Full Code 06/10/2012 12:22 PM 06/10/2012 12:22 PM Full Code 06/06/2012 7:43 PM
--- OUTSIDE RECORDS SUMMARY | 2020-05-04 21:35 | XMS REPORT | Clinical Summary ---
Author Author [facility] Address Unknown Phone Unavailable Care Team Providers Care Honing Machine Operator Tool Name Role Phone John Fajardo MD PCP Unavailable Allergies Comments Active Allergy Reactions Severity Noted Date Other reaction(s): Cough Lisinopril High 12/03/2014 Medications End Date Status Medication Sig Dispensed Refills Start Date Active losartan (COZAAR) 100 MG Take 100 mg 0 tablet by mouth daily. Active metFORMIN (GLUCOPHAGE) Take 1,000 mg 0 1000 MG tablet by mouth 2 (two) times daily with breakfast and dinner. Active aspirin 325 MG tablet Take 325 mg 0 by mouth daily. Active levothyroxine (SYNTHROID, Take 50 mcg 0 LEVOTHROID) 50 MCG tablet by mouth Every morning on an empty stomach. Active simvastatin (ZOCOR) 40 MG Take 40 mg by 0 tablet mouth nightly. Active clopidogrel (PLAVIX) 75 Take 75 mg by 0 mg tablet mouth daily. Active isosorbide mononitrate Take 120 mg 0 (ISMO,MONOKET) 20 MG by mouth 2 tablet (two) times daily . Active brimonidine (ALPHAGAN) 1 drop 3 0 0.15 % ophthalmic (three) times solution daily. Active dorzolamide (TRUSOPT) 2 % 1 drop 3 0 ophthalmic solution (three) times daily. Active latanoprost (XALATAN) 1 drop 0 0.005 % ophthalmic nightly. solution Active insulin NPH 100 unit/mL Inject 15 0 (3 mL) InPn Units subcutaneousl y 2 (two) times daily before meals. Active metoprolol (LOPRESSOR) Take 100 mg 0 100 MG tablet by mouth 2 (two) times daily. Active ranolazine (RANEXA) 1,000 Take 1 tablet 180 tablet 3 02/19/201 mg SR tablet (1,000 mg 8 total) by mouth 2 (two) times daily. Active Problems Problem Noted Date CAD (coronary artery disease) 02/19/2018 Exertional angina 02/18/2018 Multiple vessel coronary artery disease 02/18/2018 Angina of effort 11/09/2015 Social History Date Tobacco Use Types Packs/Day Years Used Former Smoker Smokeless Tobacco: Never Used Comments: quit 1996 Alcohol Use Drinks/Week oz/Week Comments No Sex Assigned at Date Recorded Not on file Industry Job Start Date Occupation Not on file Not on file Not on file Travel End Travel History Travel Start No recent travel history available. Last Filed Vital Signs Not on file Plan of Treatment Not on file Results Not on fileafter 05/04/2019 Insurance Payer Benefit Subscriber ID Type Phone Address Plan / Group [employer] xxxxxxxxx Maps HMO ALL Contracted [phone] Advance Directives For more information, please contact: [facility] [address] [place] [address] Date Inactivated Comments Code Status Date Activated 02/19/2018 4:17 PM Full Code 02/18/2018 10:42 AM This code status was determined by: Patient 11/09/2015 8:14 PM Full Code 11/09/2015 11:59 AM This code status was determined by: Patient
[2020-05-04 21:41] LABS: BASOPHILS % 0.6 % (0.0-1.0); EOSINOPHILS # (AUTO) 0.1 (0.0-0.4); EOSINOPHILS % 1.7 % (0.0-6.0); HEMATOCRIT 33.5 % (38.2-49.6); HEMOGLOBIN 10.4 g/dL (14.0-18.0); LYMPHOCYTES # (AUTO) 1.3 (1.0-3.2); LYMPHOCYTES % 19.4 % (18.0-39.1); MEAN CORPUSCULAR HEMOGLOBIN 30.1 pg (28-32); MEAN CORPUSCULAR VOLUME 97.1 fL (81-99); MONOCYTES # (AUTO) 0.8 (0.2-0.8); MONOCYTES % 11.8 % (4.4-11.3); NEUTROPHILS # (AUTO) 4.3 (2.1-6.9); NEUTROPHILS % 66.2 % (38.7-80.0); PLATELET COUNT 174 x10e3/uL (140-360); RED BLOOD COUNT 3.45 x10e6/uL (4.3-5.7); RED CELL DISTRIBUTION WIDTH 13.7 % (11.7-14.4)
--- NOTE | 2020-05-04 21:43 | Emergency Department Note ---
History of Present Illnes History of Present Illness Chief Complaint: General Medicine Complaints History of Present Illness This is a 69 year old male presents with c/o near syncope, became sweaty, dizzy and felt like he was going to pass out, pt just discharged from this hospital at 630 pm pt was admitted for chest pain and had a right and left heart cath done yesterday. . Historian: Patient, Family Member Arrival Mode: Car Conservation Specialist Required: No Onset (how long ago): hour(s) (1) Location: head Quality: dizzy, lightheaded, almost fainted Radiation: Reports non-radiation Severity: moderate Onset quality: sudden Duration (how long): hour(s) Timing of current episode: unable to specify Progression: partially resolved Chronicity: new Context: Reports recent surgery (left and right heart cath yesterday); Denies recent illness Relieving factors: none Exacerbating factors: none Associated symptoms: Reports denies other symptoms Treatments prior to arrival: none Past Medical/Family History Physician Review I have reviewed the patient's past medical and family history. Any updates have been documented here. Past Medical History Recent Fever: No Clinical Suspicion of Infectio: No New/Unexplained Change in Ment: No Past Medical History: Hypertension, Diabetes, CHF, [place], Hypothyroidism, CAD, ANDRIY D, Hyperlipedemia Other Medical History: Hyperlipidemia Past Surgical History: CABG, PCI Other Surgery: Cardiac stents Social History Smoking Cessation: Never Smoker Alcohol Use: None Family History Family history of heart diseas: No Other Last Tetanus: UTD Review of Systems Review of Systems Constitutional: Reports no symptoms EENTM: Reports no symptoms Cardiovascular: Reports no symptoms Respiratory: Reports no symptoms Gastrointestinal: Reports no symptoms Genitourinary: Reports no symptoms Musculoskeletal: Reports no symptoms Integumentary: Reports no symptoms Neurological: Reports as per HPI Psychological: Reports no symptoms Endocrine: Reports no symptoms Hematological/Lymphatic: Reports no symptoms Physical Exam Related Data Allergies: Coded Allergies: No Known Allergies (Unverified , 04/06/16) Triage Vital Signs Vital Signs Date Time Temp Pulse Resp B/P (MAP) Pulse Ox O2 Delivery O2 Flow Rate FiO2 05/04/20 21:20 97.8 70 18 100/52 97 Room Air Vital signs reviewed: Yes Physical Exam CONSTITUTIONAL Constitutional: Present well-developed, Present well-nourished HENT HENT: Present normocephalic, Present atraumatic, Present oropharynx clear/moist, Present nose normal HENT L/R: Present left ext ear normal, Present right ext ear normal EYES Eyes: Reports PERRL, Reports other (pale conjunctiva) NECK Neck: Present ROM normal PULMONARY Pulmonary: Present effort normal, Present breath sounds normal CARDIOVASCULAR Cardiovascular: Present regular rhythm, Present heart sounds normal, Present capillary refill normal, Present normal rate GASTROINTESTINAL Abdominal: Present soft, Present nontender, Present bowel sounds normal GENITOURINARY Genitourinary: Present exam deferred SKIN Skin: Present warm, Present dry MUSCULOSKELETAL Musculoskeletal: Present ROM normal NEUROLOGICAL Neurological: Present alert, Present oriented x 3, Present no gross motor or sensory deficits PSYCHOLOGICAL Psychological: Present mood/affect normal, Present judgement normal Results Laboratory Laboratory Laboratory Tests Test 05/04/20 21:30 White Blood Count 6.55 x10e3/uL (4.8-10.8) Red Blood Count 3.45 x10e6/uL (4.3-5.7) Hemoglobin 10.4 g/dL (14.0-18.0) Hematocrit 33.5 % (38.2-49.6) Mean Corpuscular Volume 97.1 fL (81-99) Mean Corpuscular Hemoglobin 30.1 pg (28-32) Mean Corpuscular Hemoglobin Concent 31.0 g/dL (31-35) Red Cell Distribution Width 13.7 % (11.7-14.4) Platelet Count 174 x10e3/uL (140-360) Neutrophils (%) (Auto) 66.2 % (38.7-80.0) Lymphocytes (%) (Auto) 19.4 % (18.0-39.1) Monocytes (%) (Auto) 11.8 % (4.4-11.3) Eosinophils (%) (Auto) 1.7 % (0.0-6.0) Basophils (%) (Auto) 0.6 % (0.0-1.0) Neutrophils # (Auto) 4.3 (2.1-6.9) Lymphocytes # (Auto) 1.3 (1.0-3.2) Monocytes # (Auto) 0.8 (0.2-0.8) Eosinophils # (Auto) 0.1 (0.0-0.4) Basophils # (Auto) 0.0 (0.0-0.1) Absolute Immature Granulocyte (auto 0.02 x10e3/uL (0-0.1) Prothrombin Time 13.4 seconds (11.9-14.5) Prothromb Time International Ratio 0.97 Activated Partial Thromboplast Time 26.3 seconds (23.8-35.5) Sodium Level 141 mmol/L (136-145) Potassium Level 4.5 mmol/L (3.5-5.1) Chloride Level 106 mmol/L (98-107) Carbon Dioxide Level 19 mmol/L (22-29) Anion Gap 20.5 mmol/L (8-16) Blood Urea Nitrogen 18 mg/dL (7-26) Creatinine 1.76 mg/dL (0.72-1.25) Estimat Glomerular Filtration Rate 38 ML/MIN (60-) BUN/Creatinine Ratio 10 (6-25) Glucose Level 143 mg/dL (74-118) Calcium Level 9.3 mg/dL (8.4-10.2) Total Bilirubin 0.6 mg/dL (0.2-1.2) Aspartate Amino Transf (AST/SGOT) 18 IU/L (5-34) Alanine Aminotransferase (ALT/SGPT) 17 IU/L (0-55) Alkaline Phosphatase 48 IU/L (40-150) Creatine Kinase 44 IU/L (30-200) Creatine Kinase MB 0.60 ng/mL (0-5.0) Troponin I 0.040 ng/mL (0-0.300) Total Protein 7.5 g/dL (6.5-8.1) Albumin 4.3 g/dL (3.5-5.0) Globulin 3.2 g/dL (2.3-3.5) Albumin/Globulin Ratio 1.3 (0.8-2.0) Lab results reviewed: Yes Imaging Imaging results reviewed: Yes Impressions Procedure: [id number] CT/CT BRAIN WO Exam Date: 05/04/20 Exam Time: 2129 REPORT STATUS: Signed CT BRAIN WO HISTORY: Syncope COMPARISON: Report from head CT dated 07/22/2016 Technique: Noncontrast axial scans were obtained from skull base to the vertex. Coronal and sagittal reconstructions obtained from the axial data. One or more of the following dose reduction techniques were used: Automated exposure control, adjustment of the mA and/or kV according to patient size, and/or utilization of iterative reconstruction technique. DISCUSSION: Scalp/Skull: Unremarkable. Brain sulci: Mildly prominent. Ventricles: Compensatory dilatation. Extra-axial spaces: No masses or fluid collections. Carotid and vertebral artery calcifications are present. Parenchyma: Small focal hypodensity in the right striatocapsular region may be an age indeterminate lacunar infarct. Mild bilateral deep white matter hypodensity is likely chronic microvascular ischemic change. Small subcortical calcification in the posterior right superior frontal gyrus is likely from remote infection or inflammation. Otherwise, no masses, hemorrhage, or large vascular territory acute infarct. Dural sinuses: No abnormal densities. Sellar/Suprasellar region: Intact. Skull base: Intact. Incidental findings: Bilateral ocular lens replacement. IMPRESSION: 1. 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 2. Otherwise, no acute intracranial abnormalities. 3. Mild supratentorial chronic microvascular ischemic change. Mild generalized cerebral volume loss. 4. 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 Signed by: Dr. Puneet Sullivan M.D. on 05/04/2020 10:11 PM Dictated By: PUNEET SULLIVAN MD 10 Transcribed By: SHYAM on 05/04/202210 COPY TO: SABRA BENNETT MD~ Procedures 12 Lead ECG Interpretation ECG Interpretation : ECG: ECG 1 Conservation Specialist: Interpreted by ED physician Date: May 04, 2020 Time: 21:17 Prior ECG tracings: reviewed Rhythm: sinus rhythm Rate: normal BPM: 77 QRS axis: normal ST segments normal: No (non specific changes) T waves normal: No T wave inversion: II, III, aVF T waves flattening: V3, V4, V5, V6 Additional Comments ekg unchanged from ekg on 05/03/20 Assessment & Plan Medical Decision Making MDM pt with near syncope one day after heart cath, pt also pale cbc, cmp, pt/ptt. cardiac enzymes, ekg, cta chest.abd.pelvis, ct brain ordered to eval for myocardial infarction, arrythmia, aortic dissection, aortic aneurysm , intracranial abnormality, anemia, coagulopathy ns 500 cc iv bolus ordered PT FOUND WITH PERICARDIAL MASS CAUSING CONSTRICTIVE CARDIOMYOPATHY, I SPOKE WITH DR BARRETT AT [facility] FOR TRANSFER Assessment & Plan Final Impression: (1) Pericardial mass (2) Constrictive cardiomyopathy Depart Disposition: TRANS TO OTHER [facility] Last Vital Signs Date Time Temp Pulse Resp B/P (MAP) Pulse Ox O2 Delivery O2 Flow Rate FiO2 05/04/20 21:20 97.8 70 18 100/52 97 Room Air Home Meds Reported Medications Nitroglycerin (NITROSTAT) 0.4 Mg Tab.subl, 0.4 MG SL Q5MIN PRN for chest pain 04/10/16 Latanoprost (LATANOPROST) 2.5 Ml Drops, 1 DROP OU HS, BOTTLE 04/06/16 Dorzolamide Hcl/Timolol Maleat (DORZOLAMIDE-TIMOLOL EYE DROPS) 10 Ml Drops, 1 DROP OU BID, BOTTLE 04/06/16 Brimonidine Tartrate (BRIMONIDINE TARTRATE) 10 Ml Drops, 1 DROP OU BID, BOTTLE 04/06/16 Aspirin (ASPIRIN) 325 Mg Tablet, 325 MG PO DAILY, TAB 04/06/16 Clopidogrel Bisulfate (CLOPIDOGREL) 75 Mg Tablet, 75 MG PO DAILY, #30 TAB 04/06/16 Losartan Potassium (LOSARTAN POTASSIUM) 100 Mg Tablet, 100 MG PO DAILY, TAB 04/06/16 Omeprazole (OMEPRAZOLE) 20 Mg Capsule.dr, 40 MG PO HS 04/06/16 Metformin Hcl (METFORMIN HCL) 1,000 Mg Tablet, 1000 MG PO BID 04/06/16 Pravastatin Sodium (PRAVASTATIN SODIUM) 40 Mg Tablet, 40 MG PO HS 04/06/16 Levothyroxine Sodium (LEVOTHYROXINE SODIUM) 50 Mcg Tablet, 50 MCG PO 0600, #30 TAB 04/06/16 Carvedilol (CARVEDILOL) 12.5 Mg Tablet, 25 MG PO BID, #60 TAB 04/06/16 Isosorbide Mononitrate (ISOSORBIDE MONONITRATE ER) 30 Mg Tab.er.24h, 120 MG PO DAILY, #30 TAB 04/06/16 Ranolazine (RANEXA) 500 Mg Tabsr, 1000 MG PO BID, #60 TAB 04/06/16 Discontinued Reported Medications Nph, Human Insulin Isophane (NOVOLIN N) 100 Unit/1 Ml Vial, 15 UNITS SC HS 04/06/16 Nph, Human Insulin Isophane (NOVOLIN N) 100 Unit/1 Ml Vial, 15 UNITS SQ ACB 04/06/16 Medications in the ED Sodium Chloride 500 ml @ 0 mls/hr Q0M ONCE IV ; Start 05/04/20 at 21:30; Stop 05/04/20 at 21:31; Status DC SABRA BENNETT MD May 04, 2020 21:43
[2020-05-04 21:47] LABS: INR 0.97; PROTHROMBIN TIME 13.4 seconds (11.9-14.5)
[2020-05-04 21:48] LABS: PARTIAL THROMBOPLASTIN TIME 26.3 seconds (23.8-35.5)
[2020-05-04 22:04] LABS: ALBUMIN 4.3 g/dL (3.5-5.0); ALBUMIN/GLOBULIN RATIO 1.3 (0.8-2.0); ANION GAP 20.5 mmol/L (8-16); CALCIUM 9.3 mg/dL (8.4-10.2); CREATINE KINASE MB 0.6 ng/mL (0-5.0); CREATININE, SERUM 1.76 mg/dL (0.72-1.25); POTASSIUM 4.5 mmol/L (3.5-5.1)
--- NOTE | 2020-05-04 22:15 | Diagnostic Imaging Report ---
CT BRAIN WO HISTORY: Syncope COMPARISON: Report from head CT dated 07/22/2016 Technique: Noncontrast axial scans were obtained from skull base to the vertex. Coronal and sagittal reconstructions obtained from the axial data. One or more of the following dose reduction techniques were used: Automated exposure control, adjustment of the mA and/or kV according to patient size, and/or utilization of iterative reconstruction technique. DISCUSSION: Scalp/Skull: Unremarkable. Brain sulci: Mildly prominent. Ventricles: Compensatory dilatation. Extra-axial spaces: No masses or fluid collections. Carotid and vertebral artery calcifications are present. Parenchyma: Small focal hypodensity in the right striatocapsular region may be an age indeterminate lacunar infarct. Mild bilateral deep white matter hypodensity is likely chronic microvascular ischemic change. Small subcortical calcification in the posterior right superior frontal gyrus is likely from remote infection or inflammation. Otherwise, no masses, hemorrhage, or large vascular territory acute infarct. Dural sinuses: No abnormal densities. Sellar/Suprasellar region: Intact. Skull base: Intact. Incidental findings: Bilateral ocular lens replacement. IMPRESSION: 1. 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 2. Otherwise, no acute intracranial abnormalities. 3. Mild supratentorial chronic microvascular ischemic change. Mild generalized cerebral volume loss. 4. 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 Signed by: Dr. Puneet Goemz M.D. on 05/04/2020 10:11 PM
[2020-05-04] MEDS ORDERED: SODIUM CHLORIDE 0.9% 1000ML 1,000 ML IV ONE (22:30)
[2020-05-04] MEDS ORDERED: IOPAMIDOL 370 MG/ML 200 ML INFUS..BTL INJ ONE (22:36)
[2020-05-04] MEDS ORDERED: SODIUM CHLORIDE 0.9% 50ML 50 ML ONE (22:36)
--- NOTE | 2020-05-04 23:44 | Diagnostic Imaging Report ---
EXAM: CTA of the Thoracoabdominal Aorta and Pelvic Arteries WITH and Without Contrast INDICATION: syncope, s/t heart cath yesterday, eval for aortic injury COMPARISON: Chest CT 05/02/2020. TECHNIQUE: Multi-detector CT technology was employed. CTA of the chest, abdomen, and pelvis was performed before and after the administration of IV contrast. IV CONTRAST: 100 mL of Isovue 370 ORAL CONTRAST: None COMPLICATIONS: None RADIATION DOSE: Total DLP: 1158 mGy*cm Estimated effective dose: (DLP x 0.015 x size factor) mSv CTDIvol has been reviewed. It is below the limits set by the Radiation Protocol Committee (RPC). For optimization of anatomic evaluation, multiplanar reconstruction, maximum intensity projections, and advanced 3-D off-line postprocessing were performed on a dedicated stand-alone workstation under the direct supervision of the interpreting physician. FINDINGS: Potential study limitations: None. LINES/ TUBES: None. VASCULAR WITH ADVANCED 3-D OFF-LINE POSTPROCESSING: LUNGS AND AIRWAYS: Lungs are clear. Airways are patent. PLEURA: The pleural spaces are clear.. HEART AND MEDIASTINUM: The thyroid gland is normal. No mediastinal, hilar or axillary lymphadenopathy. The main pulmonary artery is normal in size. The heart is normal in size. Persistent 8.7 cm peripherally calcified pericardial mass without definitive arterial enhancement. Calcifications of the aorta and major branches. Surgical changes of coronary artery bypass grafts. Moderate degree of atherosclerotic calcifications of the aorta and major branches including the [place] coronary arteries. [place] coronary artery stents. Tiny metallic hyperdensity of the inferior anterior aspect of the mediastinum is likely postsurgical. Small right ventricle volume. No dissection aneurysm or other acute aortic abnormality. ABDOMEN: The liver, gallbladder, spleen, and pancreas appear normal. The adrenal glands appear normal. Both kidneys are normal in size, shape, and density. There is no abnormal mass or hydronephrosis. Nonstenotic atherosclerotic calcifications of the aorta and major branches. PELVIS: There is no significant retroperitoneal adenopathy. No free fluid or free air within the abdomen or pelvis. Moderate colonic stool volume. The urinary bladder appears normal. BONES: degenerative changes. IMPRESSION: No acute aortic abnormality. Aortic atherosclerosis. Persistent 8.7 cm peripherally calcified anterior pericardial mass can be postoperative fibrous tissue/complex pericardial fluid, constrictive pericarditis is possible. The mass partially compresses the right ventricle. Recommend referral to cardiothoracic surgeon. Moderate colonic stool volume, correlate for constipation.. Signed by: Forest Killian DO on 05/04/2020 11:41 PM
[2020-05-05 03:40] VITALS: BP 133/66
[2020-05-05 03:57] LABS: CREATINE KINASE MB 0.6 ng/mL (0-5.0)
== END 2020-05-05 04:40 | disposition other institution (70) ==
LOC: ER 21:16
DX: R22.2 Localized swelling, mass and lump, trunk (principal); I42.5 Other restrictive cardiomyopathy; R42 Dizziness and giddiness; I10 Essential (primary) hypertension; E11.9 Type 2 diabetes mellitus without complications; E78.5 Hyperlipidemia, unspecified; I25.10 Atherosclerotic heart disease of native coronary artery without angina pectoris; K21.9 Gastro-esophageal reflux disease without esophagitis; I25.2 Old myocardial infarction; Z95.1 Presence of aortocoronary bypass graft; Z95.5 Presence of coronary angioplasty implant and graft
CPT/HCPCS: 36415; 70450; 71275; 74174; 80053; 82550; 82553; 84484; 85025; 85610; 85730; 86850; 86900; 93005; 99284; J7030; J7040; Q9967